=== PATIENT | male | born 1950 | race Caucasian/White ===

== ENCOUNTER 2020-10-02 10:03 | Inpatient (IN) | payer MEDICARE, MEDICAID ==
[~2020-10-02] VITALS: Ht 182.9 cm; Wt 95.5 kg
[2020-10-02 11:15] LABS: BASO % 0.3 % (0.0-1.0); EOS # 0.3 10^3/uL (0.0-0.5); HEMATOCRIT 34.3 % (42.0-52.0); HEMOGLOBIN 10.7 g/dl (13.5-17.5); LYMPH # 0.8 10^3/uL (1.5-5.0); LYMPH % 8.4 % (24.0-44.0); MEAN CORPUSCULAR HEMOGLOBIN 26.8 pg (27.0-33.0); MEAN CORPUSCULAR HGB CONC 31.2 g/dl (32.0-36.5); MEAN CORPUSCULAR VOLUME 85.8 fl (80.0-96.0); MONO % 10.5 % (2.0-8.0); NEUTROPHILS # 7.6 10^3/uL (1.5-8.5); NEUTROPHILS % 77.3 % (36.0-66.0); PLATELET COUNT, AUTOMATED 477 10^3/uL (150-450); WHITE BLOOD COUNT 9.8 10^3/uL (4.0-10.0)
[2020-10-02 11:45] LABS: ALBUMIN 2.3 GM/DL (3.2-5.2); ALT/SGPT 20 U/L (12-78); BILIRUBIN,DIRECT < 0.1 MG/DL (0.0-0.2); BILIRUBIN,TOTAL 0.2 MG/DL (0.2-1.0); BLOOD UREA NITROGEN 18 MG/DL (7-18); CALCIUM LEVEL 9.3 MG/DL (8.8-10.2); CARBON DIOXIDE LEVEL 22 MEQ/L (21-32); CHLORIDE LEVEL 109 MEQ/L (98-107); CK-MB VALUE MASS < 1.0 NG/ML (<3.6); CPK CREATINE PHOSPHOKINASE 29 U/L (39-308); CREATININE FOR GFR 0.92 MG/DL (0.70-1.30); GLOMERULAR FILTRATION RATE > 60.0 (>49); GLUCOSE, FASTING 90 MG/DL (70-100); MB/CK RELATIVE INDEX 3.45 (< OR =4); NT-PRO BNP 278 PG/ML (<125); POTASSIUM SERUM 3.4 MEQ/L (3.5-5.1); SODIUM LEVEL 139 MEQ/L (136-145); TOTAL PROTEIN 7.3 GM/DL (6.4-8.2); TROPONIN I < 0.02 NG/ML (< 0.10)
[2020-10-02] MEDS ORDERED: LevoFLOXacin IV 750 MG in IV 1 EA IV ONE (13:50)
[2020-10-02] MEDS ORDERED: POTASSIUM CHLORIDE 10MEQ SR TABLET PO ONE (14:00)
[2020-10-02 14:46] LABS: RSV AMPLIFICATION NEGATIVE (NEGATIVE)
[2020-10-02] MEDS ORDERED: BISACODYL 10 MG SUPP PR PRN (14:55)
[2020-10-02] MEDS ORDERED: FLEET ENEMA PR PRN (14:55)
[2020-10-02] MEDS ORDERED: ALBUTEROL SULFATE 2.5 MG/0.5 ML INH NEB SOLN NEB PRN (15:05)
[2020-10-02] MEDS ORDERED: DOCU100C16 PO (15:11)
[2020-10-02] MEDS ORDERED: OMEP40CA5 PO (15:11)
[2020-10-02] MEDS ORDERED: SIMV40TA20 PO (15:11)
[2020-10-02] MEDS ORDERED: MIRT-62 PO (15:11)
[2020-10-02] MEDS ORDERED: OLAN2.5T25 PO (15:11)
[2020-10-02] MEDS ORDERED: FERR1TAB8 PO (15:11)
[2020-10-02] MEDS ORDERED: ASPI-161 PO (15:11)
[2020-10-02] MEDS ORDERED: LEVO50TA45 PO (15:11)
[2020-10-02] MEDS ORDERED: FLUT11IN INH (15:11)
[2020-10-02] MEDS ORDERED: ZOLO100T PO (15:11)
[2020-10-02] MEDS ORDERED: LIDO1PAD TOP (15:11)
[2020-10-02] MEDS ORDERED: LORA-930 PO (15:11)
[2020-10-02] MEDS ORDERED: CARB10TACH PO (15:13)
[2020-10-02] MEDS ORDERED: HOME MED LIST COMPLETE! XX SCH (15:15)
[2020-10-02] MEDS: MORPHINE 10MG/0.5ML ORAL CONCENTRATE SOLUTION U/D SL PRN ×2 (17:03→21:30)
[2020-10-02] MEDS: LORazepam 1 MG TAB PO PRN ×2 (17:03→21:29)
[2020-10-02] MEDS: ALBUTEROL SULFATE 2.5 MG/0.5 ML INH NEB SOLN NEB SCH ×2 (17:24→19:55)
[2020-10-02] MEDS: SCOPOLAMINE 1MG TRANSDERMAL PATCH TOP PRN (22:10)
[2020-10-02] MEDS: ONDANSETRON 4MG/2ML VIAL IV PRN (23:16)
[2020-10-03] MEDS: LevoFLOXacin 750 MG TABLET PO SCH (05:20)
[2020-10-03] MEDS: MORPHINE 10MG/0.5ML ORAL CONCENTRATE SOLUTION U/D SL PRN ×4 (06:34→22:17)
[2020-10-03] MEDS: ALBUTEROL SULFATE 2.5 MG/0.5 ML INH NEB SOLN NEB SCH ×4 (07:12→20:00)
[2020-10-03] MEDS: LORazepam 1 MG TAB PO PRN ×4 (09:38→22:18)
[2020-10-03 14:00] VITALS: BP 124/80
[2020-10-03] MEDS: ONDANSETRON 4MG/2ML VIAL IV PRN ×2 (17:21→22:16)
[2020-10-03] MEDS: SODIUM CHLORIDE 0.9% INJ 10 ML SYR IV PRN (22:17)
[2020-10-04] MEDS: ONDANSETRON 4MG/2ML VIAL IV PRN (04:40)
[2020-10-04] MEDS: SODIUM CHLORIDE 0.9% INJ 10 ML SYR IV PRN (04:41)
[2020-10-04] MEDS: LORazepam 1 MG TAB PO PRN (05:33)
[2020-10-04] MEDS: MORPHINE 10MG/0.5ML ORAL CONCENTRATE SOLUTION U/D SL PRN (05:33)
[2020-10-04] MEDS: LevoFLOXacin 750 MG TABLET PO SCH (05:33)
[2020-10-04] MEDS: ALBUTEROL SULFATE 2.5 MG/0.5 ML INH NEB SOLN NEB SCH ×4 (08:02→20:03)
[2020-10-04] MEDS: MORPHINE 2 MG/ML 1ML VIAL (J2270) IV PRN ×5 (09:29→23:08)
[2020-10-04] MEDS: SODIUM CHLORIDE 0.9% INJ 10 ML SYR IV SCH (09:30)
[2020-10-04] MEDS: BISACODYL 10 MG SUPP PR SCH ×2 (10:45→23:07)
[2020-10-04] MEDS: ONDANSETRON 4MG/2ML VIAL IV SCH ×3 (12:03→23:07)
[2020-10-04] MEDS: LORazepam 2 MG/ML VIAL IV PRN ×2 (12:04→18:49)
[2020-10-05] MEDS: ONDANSETRON 4MG/2ML VIAL IV SCH ×4 (06:14→22:48)
[2020-10-05] MEDS: MORPHINE 2 MG/ML 1ML VIAL (J2270) IV PRN ×7 (06:15→22:48)
[2020-10-05] MEDS: SODIUM CHLORIDE 0.9% INJ 10 ML SYR IV PRN ×4 (06:16→22:49)
[2020-10-05] MEDS: ALBUTEROL SULFATE 2.5 MG/0.5 ML INH NEB SOLN NEB SCH ×4 (07:07→20:06)
[2020-10-05] MEDS: BISACODYL 10 MG SUPP PR SCH ×2 (09:00→21:00)
[2020-10-05] MEDS ORDERED: FLEET ENEMA PR PRN (09:05)
[2020-10-05] MEDS: SODIUM CHLORIDE 0.9% INJ 10 ML SYR IV SCH (11:33)
[2020-10-06] MEDS: ONDANSETRON 4MG/2ML VIAL IV SCH ×4 (04:49→22:50)
[2020-10-06] MEDS: MORPHINE 2 MG/ML 1ML VIAL (J2270) IV PRN ×7 (04:49→22:50)
[2020-10-06] MEDS: SODIUM CHLORIDE 0.9% INJ 10 ML SYR IV PRN ×6 (04:50→22:49)
[2020-10-06] MEDS: ALBUTEROL SULFATE 2.5 MG/0.5 ML INH NEB SOLN NEB SCH ×4 (07:47→19:40)
[2020-10-06] MEDS: SODIUM CHLORIDE 0.9% INJ 10 ML SYR IV SCH (08:33)
[2020-10-06] MEDS: BISACODYL 10 MG SUPP PR SCH ×2 (08:35→20:38)
[2020-10-06] MEDS: PROMETHAZINE INJ 25 MG/ML VIAL (J2550) IV SCH ×3 (10:25→20:37)
[2020-10-06] MEDS ORDERED: ALBUTEROL SULFATE 2.5 MG/0.5 ML INH NEB SOLN NEB PRN (20:15)
[2020-10-07] MEDS: PROMETHAZINE INJ 25 MG/ML VIAL (J2550) IV SCH ×4 (03:04→20:06)
[2020-10-07] MEDS: MORPHINE 2 MG/ML 1ML VIAL (J2270) IV PRN ×7 (03:04→22:51)
[2020-10-07] MEDS: SODIUM CHLORIDE 0.9% INJ 10 ML SYR IV PRN ×4 (03:04→22:51)
[2020-10-07] MEDS: ONDANSETRON 4MG/2ML VIAL IV SCH ×4 (04:53→22:51)
[2020-10-07] MEDS: SODIUM CHLORIDE 0.9% INJ 10 ML SYR IV SCH (08:07)
[2020-10-07] MEDS: BISACODYL 10 MG SUPP PR SCH ×2 (09:00→20:45)
[2020-10-08] MEDS: MORPHINE 2 MG/ML 1ML VIAL (J2270) IV PRN ×5 (03:00→21:51)
[2020-10-08] MEDS: PROMETHAZINE INJ 25 MG/ML VIAL (J2550) IV SCH ×4 (03:00→21:49)
[2020-10-08] MEDS: SODIUM CHLORIDE 0.9% INJ 10 ML SYR IV PRN ×4 (03:01→23:55)
[2020-10-08] MEDS: ONDANSETRON 4MG/2ML VIAL IV SCH ×4 (04:52→23:08)
[2020-10-08] MEDS: SODIUM CHLORIDE 0.9% INJ 10 ML SYR IV SCH (08:42)
[2020-10-08] MEDS: BISACODYL 10 MG SUPP PR SCH ×2 (08:43→21:49)
[2020-10-09] MEDS: PROMETHAZINE INJ 25 MG/ML VIAL (J2550) IV SCH ×2 (02:32→09:57)
[2020-10-09] MEDS: MORPHINE 2 MG/ML 1ML VIAL (J2270) IV PRN ×2 (02:33→05:18)
[2020-10-09] MEDS: SODIUM CHLORIDE 0.9% INJ 10 ML SYR IV PRN ×3 (02:33→05:53)
[2020-10-09] MEDS: SCOPOLAMINE 1MG TRANSDERMAL PATCH TOP PRN (02:34)
[2020-10-09] MEDS: ONDANSETRON 4MG/2ML VIAL IV SCH (05:17)
[2020-10-09] MEDS: BISACODYL 10 MG SUPP PR SCH ×2 (09:57→22:05)
[2020-10-09] MEDS: SODIUM CHLORIDE 0.9% INJ 10 ML SYR IV SCH (09:58)
[2020-10-09] MEDS: MORPHINE 10MG/0.5ML ORAL CONCENTRATE SOLUTION U/D SL PRN ×2 (16:16→22:21)
[2020-10-09] MEDS: POLYVINYL ALCOHOL OPHTH SOLN 15 ML(LIQUITEARS) OU SCH ×2 (16:35→22:05)
[2020-10-10] MEDS: BISACODYL 10 MG SUPP PR SCH ×2 (09:41→21:50)
[2020-10-10] MEDS: MORPHINE 10MG/0.5ML ORAL CONCENTRATE SOLUTION U/D SL PRN ×2 (09:41→13:45)
[2020-10-10] MEDS: SODIUM CHLORIDE 0.9% INJ 10 ML SYR IV SCH (09:42)
[2020-10-10] MEDS: POLYVINYL ALCOHOL OPHTH SOLN 15 ML(LIQUITEARS) OU SCH ×3 (09:42→21:50)
[2020-10-10] MEDS: ONDANSETRON 4 MG ORAL DISINTEGRATING TAB SL PRN (15:07)
[2020-10-11] MEDS: MORPHINE 10MG/0.5ML ORAL CONCENTRATE SOLUTION U/D SL PRN ×4 (08:04→20:14)
[2020-10-11] MEDS: BISACODYL 10 MG SUPP PR SCH (08:04)
[2020-10-11] MEDS: SODIUM CHLORIDE 0.9% INJ 10 ML SYR IV SCH (10:32)
[2020-10-11] MEDS: POLYVINYL ALCOHOL OPHTH SOLN 15 ML(LIQUITEARS) OU SCH ×3 (10:32→20:14)
[2020-10-12] MEDS: BISACODYL 10 MG SUPP PR SCH ×3 (00:37→19:42)
[2020-10-12] MEDS: MORPHINE 10MG/0.5ML ORAL CONCENTRATE SOLUTION U/D SL PRN ×6 (01:03→21:58)
[2020-10-12] MEDS: ONDANSETRON 4 MG ORAL DISINTEGRATING TAB SL PRN (06:40)
[2020-10-12] MEDS: POLYVINYL ALCOHOL OPHTH SOLN 15 ML(LIQUITEARS) OU SCH ×3 (09:51→19:37)
[2020-10-12] MEDS: SODIUM CHLORIDE 0.9% INJ 10 ML SYR IV SCH (09:51)
[2020-10-12] MEDS: SCOPOLAMINE 1MG TRANSDERMAL PATCH TOP PRN (17:34)
[2020-10-13] MEDS: MORPHINE 10MG/0.5ML ORAL CONCENTRATE SOLUTION U/D SL PRN ×7 (00:12→23:40)
[2020-10-13] MEDS: SODIUM CHLORIDE 0.9% INJ 10 ML SYR IV SCH (08:27)
[2020-10-13] MEDS: POLYVINYL ALCOHOL OPHTH SOLN 15 ML(LIQUITEARS) OU SCH ×3 (08:28→20:20)
[2020-10-13] MEDS: BISACODYL 10 MG SUPP PR SCH ×2 (08:29→20:20)
[2020-10-13] MEDS: ONDANSETRON 4 MG ORAL DISINTEGRATING TAB SL PRN (18:22)
[2020-10-13] MEDS: SCOPOLAMINE 1MG TRANSDERMAL PATCH TOP PRN (20:29)
[2020-10-14] MEDS: MORPHINE 10MG/0.5ML ORAL CONCENTRATE SOLUTION U/D SL PRN ×6 (05:14→22:32)
[2020-10-14] MEDS: POLYVINYL ALCOHOL OPHTH SOLN 15 ML(LIQUITEARS) OU SCH ×3 (07:30→19:23)
[2020-10-14] MEDS: ONDANSETRON 4 MG ORAL DISINTEGRATING TAB SL PRN ×2 (15:11→19:23)
[2020-10-14] MEDS: ATROPINE SULFATE 1% OP SOLN 2 ML BTL SL PRN (15:12)
[2020-10-15] MEDS: ONDANSETRON 4 MG ORAL DISINTEGRATING TAB SL PRN (01:27)
[2020-10-15] MEDS: MORPHINE 10MG/0.5ML ORAL CONCENTRATE SOLUTION U/D SL PRN ×5 (01:27→22:20)
[2020-10-15] MEDS: ATROPINE SULFATE 1% OP SOLN 2 ML BTL SL PRN (01:43)
[2020-10-15] MEDS: POLYVINYL ALCOHOL OPHTH SOLN 15 ML(LIQUITEARS) OU SCH ×3 (09:10→20:03)
[2020-10-16] MEDS: POLYVINYL ALCOHOL OPHTH SOLN 15 ML(LIQUITEARS) OU SCH ×3 (09:22→20:36)
[2020-10-16] MEDS: MORPHINE 10MG/0.5ML ORAL CONCENTRATE SOLUTION U/D SL PRN (09:22)
[2020-10-16] MEDS: ONDANSETRON 4 MG ORAL DISINTEGRATING TAB SL PRN (09:49)
[2020-10-17] MEDS: MORPHINE 10MG/0.5ML ORAL CONCENTRATE SOLUTION U/D SL PRN ×3 (07:54→19:40)
[2020-10-17] MEDS: POLYVINYL ALCOHOL OPHTH SOLN 15 ML(LIQUITEARS) OU SCH ×3 (07:55→20:37)
[2020-10-18] MEDS: POLYVINYL ALCOHOL OPHTH SOLN 15 ML(LIQUITEARS) OU SCH ×3 (08:25→20:40)
[2020-10-18] MEDS: MORPHINE 10MG/0.5ML ORAL CONCENTRATE SOLUTION U/D SL PRN (15:43)
[2020-10-19] MEDS: POLYVINYL ALCOHOL OPHTH SOLN 15 ML(LIQUITEARS) OU SCH ×3 (08:51→21:14)
[2020-10-19] MEDS: MORPHINE 10MG/0.5ML ORAL CONCENTRATE SOLUTION U/D SL PRN ×2 (15:06→22:03)
[2020-10-20] MEDS: POLYVINYL ALCOHOL OPHTH SOLN 15 ML(LIQUITEARS) OU SCH ×3 (10:09→21:04)
[2020-10-20] MEDS: SCOPOLAMINE 1MG TRANSDERMAL PATCH TOP PRN (16:31)
[2020-10-20] MEDS: MORPHINE 10MG/0.5ML ORAL CONCENTRATE SOLUTION U/D SL PRN (16:32)
[2020-10-21] MEDS: POLYVINYL ALCOHOL OPHTH SOLN 15 ML(LIQUITEARS) OU SCH ×4 (10:54→20:14)
[2020-10-21] MEDS: MORPHINE 10MG/0.5ML ORAL CONCENTRATE SOLUTION U/D SL PRN ×2 (12:48→20:24)
[2020-10-21] MEDS: LORazepam 0.5 MG TAB SL PRN (12:49)
[2020-10-21] MEDS: MOM 30ML SUSPENSION UDC PO PRN (14:01)
[2020-10-21] MEDS: ONDANSETRON 4 MG ORAL DISINTEGRATING TAB SL PRN (17:09)
[2020-10-22] MEDS: POLYVINYL ALCOHOL OPHTH SOLN 15 ML(LIQUITEARS) OU SCH ×3 (09:03→21:15)
[2020-10-22] MEDS: MORPHINE 10MG/0.5ML ORAL CONCENTRATE SOLUTION U/D SL PRN (17:52)
[2020-10-22] MEDS: ONDANSETRON 4 MG ORAL DISINTEGRATING TAB SL PRN (18:02)
[2020-10-23] MEDS: ONDANSETRON 4 MG ORAL DISINTEGRATING TAB SL PRN ×4 (00:39→20:08)
[2020-10-23] MEDS: MORPHINE 10MG/0.5ML ORAL CONCENTRATE SOLUTION U/D SL PRN ×8 (00:39→22:35)
[2020-10-23] MEDS: MOM 30ML SUSPENSION UDC PO PRN (09:36)
[2020-10-23] MEDS: LORazepam 0.5 MG TAB SL PRN ×2 (09:36→17:27)
[2020-10-23] MEDS: POLYVINYL ALCOHOL OPHTH SOLN 15 ML(LIQUITEARS) OU SCH ×3 (09:37→20:08)
[2020-10-23] MEDS: SCOPOLAMINE 1MG TRANSDERMAL PATCH TOP PRN (20:08)
[2020-10-24] MEDS: LORazepam 0.5 MG TAB SL PRN ×2 (06:22→12:39)
[2020-10-24] MEDS: ONDANSETRON 4 MG ORAL DISINTEGRATING TAB SL PRN ×2 (06:23→12:40)
[2020-10-24] MEDS: POLYVINYL ALCOHOL OPHTH SOLN 15 ML(LIQUITEARS) OU SCH ×3 (08:51→20:16)
[2020-10-24] MEDS: MORPHINE 10MG/0.5ML ORAL CONCENTRATE SOLUTION U/D SL PRN ×3 (12:39→22:27)
[2020-10-24] MEDS: MOM 30ML SUSPENSION UDC PO PRN (12:40)
[2020-10-25] MEDS: POLYVINYL ALCOHOL OPHTH SOLN 15 ML(LIQUITEARS) OU SCH ×3 (09:12→20:30)
[2020-10-25] MEDS: MORPHINE 10MG/0.5ML ORAL CONCENTRATE SOLUTION U/D SL PRN ×2 (18:11→20:30)
[2020-10-25] MEDS: ONDANSETRON 4 MG ORAL DISINTEGRATING TAB SL PRN (20:36)
[2020-10-25] MEDS: LORazepam 0.5 MG TAB SL PRN (20:55)
[2020-10-26] MEDS: MORPHINE 10MG/0.5ML ORAL CONCENTRATE SOLUTION U/D SL PRN ×3 (01:04→14:44)
[2020-10-26] MEDS: LORazepam 0.5 MG TAB SL PRN (02:37)
[2020-10-26] MEDS: POLYVINYL ALCOHOL OPHTH SOLN 15 ML(LIQUITEARS) OU SCH ×3 (09:31→21:04)
[2020-10-27] MEDS ORDERED: UNRESOLVED CLARIFICATION ENTRY XX SCH (00:01)
[2020-10-27] MEDS: MORPHINE 10MG/0.5ML ORAL CONCENTRATE SOLUTION U/D SL PRN (06:40)
[2020-10-27] MEDS: POLYVINYL ALCOHOL OPHTH SOLN 15 ML(LIQUITEARS) OU SCH ×3 (09:38→20:50)
[2020-10-27] MEDS: CIPROFLOXACIN 0.3% OPHTH SOLN 2.5ML OU SCH (19:42)
[2020-10-28] MEDS: CIPROFLOXACIN 0.3% OPHTH SOLN 2.5ML OU SCH ×4 (00:07→18:34)
[2020-10-28] MEDS: MORPHINE 10MG/0.5ML ORAL CONCENTRATE SOLUTION U/D SL PRN ×3 (00:07→21:36)
[2020-10-28] MEDS: POLYVINYL ALCOHOL OPHTH SOLN 15 ML(LIQUITEARS) OU SCH ×3 (09:45→20:05)
[2020-10-28] MEDS: SCOPOLAMINE 1MG TRANSDERMAL PATCH TOP PRN (21:36)
[2020-10-29] MEDS: CIPROFLOXACIN 0.3% OPHTH SOLN 2.5ML OU SCH ×4 (05:57→18:15)
[2020-10-29] MEDS: POLYVINYL ALCOHOL OPHTH SOLN 15 ML(LIQUITEARS) OU SCH ×3 (09:40→20:28)
[2020-10-29] MEDS: LORazepam 0.5 MG TAB SL PRN (14:02)
[2020-10-29] MEDS: MORPHINE 10MG/0.5ML ORAL CONCENTRATE SOLUTION U/D SL PRN ×2 (14:53→20:28)
[2020-10-30] MEDS: CIPROFLOXACIN 0.3% OPHTH SOLN 2.5ML OU SCH ×4 (00:30→17:50)
[2020-10-30] MEDS: MORPHINE 10MG/0.5ML ORAL CONCENTRATE SOLUTION U/D SL PRN ×5 (00:38→21:27)
[2020-10-30] MEDS: POLYVINYL ALCOHOL OPHTH SOLN 15 ML(LIQUITEARS) OU SCH ×3 (09:48→21:27)
[2020-10-30] MEDS: LORazepam 0.5 MG TAB SL PRN ×3 (13:41→21:27)
[2020-10-30] MEDS: HYDROCORTISONE 1% CREAM 30 GM TOP PRN (21:36)
[2020-10-31] MEDS: CIPROFLOXACIN 0.3% OPHTH SOLN 2.5ML OU SCH ×5 (00:27→23:10)
[2020-10-31] MEDS: MORPHINE 10MG/0.5ML ORAL CONCENTRATE SOLUTION U/D SL PRN ×4 (00:28→20:31)
[2020-10-31] MEDS: ONDANSETRON 4 MG ORAL DISINTEGRATING TAB SL PRN ×3 (05:52→22:50)
[2020-10-31] MEDS: LORazepam 0.5 MG TAB SL PRN ×2 (05:52→16:44)
[2020-10-31] MEDS: POLYVINYL ALCOHOL OPHTH SOLN 15 ML(LIQUITEARS) OU SCH ×3 (09:00→20:31)
[2020-11-01] MEDS: CIPROFLOXACIN 0.3% OPHTH SOLN 2.5ML OU SCH ×2 (06:03→12:53)
[2020-11-01] MEDS: POLYVINYL ALCOHOL OPHTH SOLN 15 ML(LIQUITEARS) OU SCH ×3 (08:49→21:46)
[2020-11-01] MEDS: ONDANSETRON 4 MG ORAL DISINTEGRATING TAB SL PRN (17:42)
[2020-11-01] MEDS: MORPHINE 10MG/0.5ML ORAL CONCENTRATE SOLUTION U/D SL PRN (17:47)
[2020-11-01] MEDS: SCOPOLAMINE 1MG TRANSDERMAL PATCH TOP PRN (21:52)
[2020-11-02] MEDS: POLYVINYL ALCOHOL OPHTH SOLN 15 ML(LIQUITEARS) OU SCH ×3 (08:25→22:49)
[2020-11-02] MEDS: MORPHINE 10MG/0.5ML ORAL CONCENTRATE SOLUTION U/D SL PRN ×2 (18:16→22:50)
[2020-11-02] MEDS: LORazepam 0.5 MG TAB SL PRN ×2 (18:16→22:50)
[2020-11-02] MEDS: HYDROCORTISONE 1% CREAM 30 GM TOP PRN (22:50)
[2020-11-02] MEDS: ONDANSETRON 4 MG ORAL DISINTEGRATING TAB SL PRN (22:50)
[2020-11-03] MEDS: LORazepam 0.5 MG TAB SL PRN ×3 (05:46→14:57)
[2020-11-03] MEDS: ONDANSETRON 4 MG ORAL DISINTEGRATING TAB SL PRN ×3 (05:46→14:57)
[2020-11-03] MEDS: MORPHINE 10MG/0.5ML ORAL CONCENTRATE SOLUTION U/D SL PRN ×4 (05:46→15:52)
[2020-11-03] MEDS: POLYVINYL ALCOHOL OPHTH SOLN 15 ML(LIQUITEARS) OU SCH ×4 (08:57→21:00)
[2020-11-03] MEDS: LORazepam 1 MG TAB SL PRN (15:53)
[2020-11-03] MEDS: HYDROCORTISONE 1% CREAM 30 GM TOP PRN (17:11)
[2020-11-04] MEDS: POLYVINYL ALCOHOL OPHTH SOLN 15 ML(LIQUITEARS) OU SCH ×3 (08:07→21:45)
[2020-11-04] MEDS: LORazepam 1 MG TAB SL PRN ×4 (08:07→21:45)
[2020-11-04] MEDS: ONDANSETRON 4 MG ORAL DISINTEGRATING TAB SL PRN ×2 (08:07→15:19)
[2020-11-04] MEDS: MORPHINE 10MG/0.5ML ORAL CONCENTRATE SOLUTION U/D SL PRN ×4 (08:08→21:45)
[2020-11-05] MEDS: POLYVINYL ALCOHOL OPHTH SOLN 15 ML(LIQUITEARS) OU SCH ×3 (09:45→20:44)
[2020-11-05] MEDS: MORPHINE 10MG/0.5ML ORAL CONCENTRATE SOLUTION U/D SL PRN ×3 (10:12→20:48)
[2020-11-05] MEDS: SCOPOLAMINE 1MG TRANSDERMAL PATCH TOP PRN (20:48)
[2020-11-06] MEDS: POLYVINYL ALCOHOL OPHTH SOLN 15 ML(LIQUITEARS) OU SCH ×3 (09:00→22:17)
[2020-11-07] MEDS: MORPHINE 10MG/0.5ML ORAL CONCENTRATE SOLUTION U/D SL PRN ×2 (08:39→17:09)
[2020-11-07] MEDS: LORazepam 1 MG TAB SL PRN ×2 (08:39→17:08)
[2020-11-07] MEDS: ONDANSETRON 4 MG ORAL DISINTEGRATING TAB SL PRN ×2 (08:39→17:08)
[2020-11-07] MEDS: POLYVINYL ALCOHOL OPHTH SOLN 15 ML(LIQUITEARS) OU SCH ×3 (08:39→20:03)
[2020-11-08] MEDS: POLYVINYL ALCOHOL OPHTH SOLN 15 ML(LIQUITEARS) OU SCH ×3 (08:52→20:35)
[2020-11-08] MEDS: MORPHINE 10MG/0.5ML ORAL CONCENTRATE SOLUTION U/D SL PRN (15:24)
[2020-11-08] MEDS: ONDANSETRON 4 MG ORAL DISINTEGRATING TAB SL PRN (15:24)
[2020-11-09] MEDS: POLYVINYL ALCOHOL OPHTH SOLN 15 ML(LIQUITEARS) OU SCH ×3 (09:14→20:19)
[2020-11-09] MEDS: MORPHINE 10MG/0.5ML ORAL CONCENTRATE SOLUTION U/D SL PRN (20:37)
[2020-11-10] MEDS: POLYVINYL ALCOHOL OPHTH SOLN 15 ML(LIQUITEARS) OU SCH ×3 (08:25→20:02)
[2020-11-11] MEDS: POLYVINYL ALCOHOL OPHTH SOLN 15 ML(LIQUITEARS) OU SCH ×3 (09:31→20:18)
[2020-11-11] MEDS: MORPHINE 10MG/0.5ML ORAL CONCENTRATE SOLUTION U/D SL PRN (17:34)
[2020-11-11] MEDS: LORazepam 1 MG TAB SL PRN (17:46)
[2020-11-12] MEDS: POLYVINYL ALCOHOL OPHTH SOLN 15 ML(LIQUITEARS) OU SCH (09:20)
[2020-11-12] MEDS ORDERED: ONDA4TAB6 SL (09:31)
[2020-11-12] MEDS ORDERED: MORP1SOL SL (09:31)
[2020-11-12] MEDS ORDERED: MOM30SS2 PO (09:31)
[2020-11-12] MEDS ORDERED: ATIV1TAB7 SL (09:31)
[2020-11-12] MEDS ORDERED: POLYOPD OU (09:31)
[2020-11-12] MEDS ORDERED: ATRO1OPD SL (09:31)
[2020-11-12] MEDS ORDERED: ALB2.5NEB NEB (09:31)
[2020-11-12] MEDS ORDERED: FLEEENE12 PR (09:31)
[2020-11-12] MEDS ORDERED: TRAN1DIS4 TOP (09:31)
[2020-11-12] MEDS ORDERED: HYDR1CR TOP (09:31)
== END 2020-11-12 11:33 | disposition hospice, inpatient (51) | DRG 951 ==
LOC: M ED 10:03 → EDBD 10:03 → M ED INP 13:48 → M MSPAV 16:06
PROVIDERS: ADMIT General Practice; ATTEND Neuromusculoskeletal Medicine & OMM
DX: Z51.5 Encounter for palliative care (principal); J18.9 Pneumonia, unspecified organism; J96.11 Chronic respiratory failure with hypoxia; C34.90 Malignant neoplasm of unspecified part of unspecified bronchus or lung; K56.7 Ileus, unspecified; C78.7 Secondary malignant neoplasm of liver and intrahepatic bile duct; Z93.0 Tracheostomy status; Z66 Do not resuscitate; Z87.891 Personal history of nicotine dependence; Z20.822 Contact with and (suspected) exposure to COVID-19; Z88.0 Allergy status to penicillin; Z79.899 Other long term (current) drug therapy